=== PATIENT | female | born 1995 | race Caucasian/White ===

== ENCOUNTER 2018-11-29 10:25 | Inpatient (IN) | payer OTHER ==
[~2018-11-29] VITALS: Ht 162.6 cm; Wt 71.0 kg
--- OUTSIDE RECORDS SUMMARY | ~2018-11-29 | XMS | Clinical Summary ---
Demographics + + + | Address | [address] | | | [place] [address] | + + + | Home Phone | | + + + | Preferred Language | Unknown | + + + | Marital Status | Single | + + + | Evangelical Affiliation | 1027 | + + + | Race | Unknown | + + + | Ethnic Group | Unknown | + + + Author + + + | Author | [facility] | | | and [place] | + + + | Organization | [facility] | | | and [place] [...] Team Providers + +------+ + | Care Oven Worker Name | Role | Phone | + [...]
[~2018-11-29 10:25] MED LIST: NORCO 5-325 TA1 EACH PO
[2018-11-29] MEDS ORDERED: VITAFOL-OB+DHA1 EACH PO (16:02)
--- NOTE | 2018-11-29 18:15 | PR ---
[facility] [address] [facility] [place], [place] [address] Signed Progress Notes IP Datetime Report Generated by CHENG: 11/29/2018 18:14 PROGRESS NOTES: [id number] Impression: Normal progression of labor; Reassuring heart rate Procedures: Sterile Vag Exam Plan: Continue present management Informed Consent Obtain: Vaginal Delivery; Risks, Benefits and Alternatives Discussed VITAL SIGNS: [id number] Vital Signs: Reviewed; Within Normal Limits EXAM: [id number] Dilatation: 7.0 Effacement: 100 Station: 0 Uterine Contractions: appear to be q 2 to 3 min but difficult to chart picker MEMBRANES: [id number] Membrane Status: Intact Comments: Comfortable after epidural redose and progressing. Will continue close observation. Fetus A: [id number] FHR Baseline: 140 Variability: Moderate 6-25bpm Accelerations: 10X10 Decelerations: Late FHR Category: Category II Presentation: Vertex Comments on Fetus A: reassuring with mod variability but will continue close observation Fetus B: [id number] Signing Physician: Azalia Card MD Copies: ~ *Electronically Signed* 11/29/18 1814 AZALIA CARD MD PATIENT NAME: VILMA WILHELM PROGRESS NOTE DATE OF : [birth year] PHYSICIAN: AZALIA CADR MD RPT #: [id number] REPORT IS CONFIDENTIAL AND NOT TO BE RELEASED WITHOUT AUTHORIZATION
--- NOTE | 2018-11-29 19:10 | PR ---
[facility] [address] [facility] [place], [place] [address] Signed Progress Notes IP Datetime Report Generated by CHENG: 11/29/2018 19:10 PROGRESS NOTES: [id number] Impression: Slow Progression of Labor Procedures: Sterile Vag Exam Plan: Continue present management Informed Consent Obtain: Vaginal Delivery; Risks, Benefits and Alternatives Discussed VITAL SIGNS: [id number] Vital Signs: Reviewed; Within Normal Limits EXAM: [id number] Dilatation: 9.0 Effacement: 100 Station: 0 Uterine Contractions: q 2 to 4 min MEMBRANES: [id number] Membrane Status: Intact Comments: Not much progress over the last hr. Will continue close observation. Fetus A: [id number] FHR Baseline: 140 Variability: Moderate 6-25bpm Accelerations: 10X10 Decelerations: Variable FHR Category: Category II Presentation: Vertex Comments on Fetus A: moderate variability so reassuring but will continue close observation Fetus B: [id number] Signing Physician: Azalia Card MD Copies: ~ *Electronically Signed* 11/29/181909 AZALIA CARD MD PATIENT NAME: VILMA WILHELM PROGRESS NOTE DATE OF : [birth year] PHYSICIAN: AZALIA CARD MD RPT #: [id number] REPORT IS CONFIDENTIAL AND NOT TO BE RELEASED WITHOUT AUTHORIZATION
--- NOTE | 2018-11-30 07:54 | PR ---
[facility] [address] [facility] [place], [place] [address] Signed PP Progress Notes Datetime Report Generated by CHENG: 11/30/2018 07:53 SUBJECTIVE: [id number] Pain: Within normal limits Vital Signs: [id number] Vital Signs: Reviewed; Within Normal Limits EXAM: [id number] Cardiovascular: Not Done Respiratory: Not Done Abdomen/Uterus: Abnormal Lochia: Normal Vulva/Perineum: Not Done Breasts: Not Done CVA Tenderness: Not Done Extremities: Normal Incision: Not Applicable Progress: Normal Exam Comments: Fundus firm, NT @ U-2. H/H 11.6/34.7, WBC 18.2, plat 170k IMPRESSION/PLAN/PROCEDURES: [id number] Impression: Normal progression Plan: Continue present management Progress Notes: Doing well. Will continue present management. Signing Physician: Azalia Card MD Copies: ~ *Electronically Signed* 11/30/18 0753 AZALIA CARD MD PATIENT NAME: VILMA WILHELM PROGRESS NOTE DATE OF : 97 PHYSICIAN: AZALIA CARD MD RPT #: [id number] REPORT IS CONFIDENTIAL AND NOT TO BE RELEASED WITHOUT AUTHORIZATION
--- NOTE | 2018-12-01 08:31 | PR ---
[facility] [address] [facility] [place], [place] [address] Signed PP Progress Notes Datetime Report Generated by CPN: 12/01/2018 08:31 SUBJECTIVE: [id number] Pain: Within normal limits Vital Signs: [id number] Vital Signs: Reviewed; Within Normal Limits EXAM: [id number] Cardiovascular: Not Done Respiratory: Not Done Abdomen/Uterus: Abnormal Lochia: Normal Vulva/Perineum: Not Done Breasts: Not Done CVA Tenderness: Not Done Extremities: Normal Incision: Not Applicable Progress: Normal Exam Comments: Fundus firm, NT @ U-2. IMPRESSION/PLAN/PROCEDURES: [id number] Impression: Normal progression Plan: Discharge Procedures: None Progress Notes: Doing well overall. She is ready for D/C. Signing Physician: Azalia Card MD Copies: ~ *Electronically Signed* 12/01/18830 AZALIA CARD MD PATIENT NAME: VILMA WILHELM PROGRESS NOTE DATE OF : 97 PHYSICIAN: AZALIA CARD MD RPT #: [id number] REPORT IS CONFIDENTIAL AND NOT TO BE RELEASED WITHOUT AUTHORIZATION
== END 2018-12-01 16:45 | disposition home or self-care (01) | DRG 807 ==
LOC: FBCO 10:25 → FBC 12:10
PROVIDERS: ADMIT Obstetrics & Gynecology
PROC: 10E0XZZ Delivery of Products of Conception, External Approach (ICD-10-PCS; principal; 2018-11-29)
PROC: 0KQM0ZZ Repair Perineum Muscle, Open Approach (ICD-10-PCS; 2018-11-29)
PROC: 0UQMXZZ Repair Vulva, External Approach (ICD-10-PCS; 2018-11-29)
PROC: 00HU33Z Insertion of Infusion Device into Spinal Canal, Percutaneous Approach (ICD-10-PCS; 2018-11-29)
PROC: 3E0R3BZ Introduction of Anesthetic Agent into Spinal Canal, Percutaneous Approach (ICD-10-PCS; 2018-11-29)
DX: O42.92 Full-term premature rupture of membranes, unspecified as to length of time between rupture and onset of labor (principal); Z37.0 Single live birth; Z3A.37 37 weeks gestation of pregnancy; O76 Abnormality in fetal heart rate and rhythm complicating labor and delivery; O70.1 Second degree perineal laceration during delivery; O69.3XX0 Labor and delivery complicated by short cord, not applicable or unspecified; Z86.59 Personal history of other mental and behavioral disorders
CPT/HCPCS: 36415; 59025; 82803; 84112; 85027; 99213; J2590; J7120

== ENCOUNTER 2018-12-03 23:38 | Emergency (ER) | payer OTHER ==
[~2018-12-03] VITALS: Ht 162.6 cm; Wt 68.5 kg
--- OUTSIDE RECORDS SUMMARY | ~2018-12-03 | XMS | Clinical Summary ---
Demographics + + + | Address | [address] | | | [place] [address] | + + + | Home Phone | | + + + | Preferred Language | Unknown | + + + | Marital Status | Single | + + + | Mandaen Affiliation | 1027 | + + + | Race | Unknown | + + + | Ethnic Group | Unknown | + + + Author + + + | Author | [facility] | | | and [place] | + + + | Organization | [facility] | | | and [place] | + + + | Address | Unknown | + + + | Phone | Unavailable | + + + Support + + +---------+ + | Name | Relationship | Address | Phone | + + +---------+ + | LEXII WILHELM | ECON | Unknown | | | Emmanuel/J CARLOS Hernandes | | | | + + +---------+ + Care Team Providers + +------+ + | Care Test Lab Technician Name | Role | Phone | + +------+ + PP | Unavailable | + +------+ + Allergies Not on File Medications Not on file Active Problems Not on file Social History + +-------+ +--------+------+ | Tobacco Use | Types | Packs/Day | Years | Date | | | | | Used | | + +-------+ +--------+------+ | Never Assessed | | | | | + +-------+ +--------+------+ + + + | Sex Assigned at | Date Recorded | | | | + + + | Not on file | | + + + + + + + | Job Start Date | Occupation | Industry | + + + + | Not on file | Not on file | Not on file | + + + + + + + + | Travel History | Travel Start | Travel End | + + + + + + | No recent travel history available. | + + Plan of Treatment + + + + + | Health Maintenance | Due Date | Last Done | Comments | + + + + + | Well Child Check | | | | | | 0 | | | + + + + + | Vaccine: HPV (1 - | | | | | Female 3-dose | 2 | | | | series) | | | | + + + + + | Vaccine: | | | | | Dtap/Tdap/Td (1 - | 6 | | | | Tdap) | | | | + + + + + | Cervical Cancer | | | | | Screening (Pap) | 8 | | | + + + + + | Vaccine: Influenza | | | | | (Season Ended) | 9 | | | + + + + + Results Not on filefrom Last 3 Months"
--- OUTSIDE RECORDS SUMMARY | ~2018-12-03 | XMS | Clinical Summary ---
Demographics + + + | Address | [address] | | | [place] [address] | + + + | Home Phone | | + + + | Preferred Language | Unknown | + + + | Marital Status | Single | + + + | Mormon Affiliation | 1027 | + + + | Race | Unknown | + + + | Ethnic Group | Unknown | + + + Author + + + | Author | [facility] | | | and [place] | + + + | Organization | [facility] [place] | | | and [place] [...] Team Providers + +------+ + | Care Materials Tech Name | Role | Phone | + [...]
[~2018-12-03 23:38] MED LIST changes: +VITAFOL-OB+DHA1 EACH PO
[2018-12-04] MEDS ORDERED: DICLOXACILLIN500 MG PO (00:57)
== END 2018-12-04 01:15 | disposition home or self-care (01) ==
LOC: ED 23:38
DX: O91.22 Nonpurulent mastitis associated with the puerperium (principal); O9A.23 Injury, poisoning and certain other consequences of external causes complicating the puerperium; S31.41XA Laceration without foreign body of vagina and vulva, initial encounter; X58.XXXA Exposure to other specified factors, initial encounter
CPT/HCPCS: 99283

== ENCOUNTER 2021-11-29 10:21 | Emergency (ER) | payer OTHER ==
[~2021-11-29] VITALS: Ht 162.6 cm; Wt 68.5 kg
[~2021-11-29 10:21] MED LIST changes: +DICLOXACILLIN500 MG PO
--- OUTSIDE RECORDS SUMMARY | 2021-11-29 10:22 | XMS ---
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 PHONE: Unknown Shanon has no Care Guidelines for this patient. EAureliano VISIT COUNT (12 MO.) 1 JYOTI Carlson TOTAL 1 NOTE: Visits indicate total known visits. ED/UCC VISIT TRACKING (12 MO.) 11/29/2021 10:21 JYOTI Og [place] TYPE: Emergency COMPLAINT: - PAIN INPATIENT VISIT TRACKING (12 MO.) No inpatient visits to display in this time frame [email or web address]
[2021-11-29] MEDS ORDERED: AMPHETAMINE SALT5 MG PO (10:33)
[2021-11-29] MEDS ORDERED: HYDROXYZINE HCL25 MG PO (11:06)
--- NOTE | 2021-12-01 08:57 | EKG ---
[facility] [address] [facility] [place] [address] Signed Normal sinus rhythm Rightward axis Borderline ECG No previous ECGs available Confirmed by RODY BALLESTEROS MD ([id number]) on 12/01/2021 8:57:16 AM Electronically Signed By: RODY BALLESTEROS MD 12/01/21 0857 PATIENT NAME: VILMA WILHELM Electrocardiogram DATE OF : [birth year] PHYSICIAN: RODY BALLESTEROS MD REPORT #: [id number] REPORT IS CONFIDENTIAL AND NOT TO BE RELEASED WITHOUT AUTHORIZATION
== END 2021-11-29 11:47 | disposition home or self-care (01) ==
LOC: ED 10:21
DX: F41.0 Panic disorder [episodic paroxysmal anxiety] (principal)
CPT/HCPCS: 93005; 93010; Q0177